=== PATIENT | male | born 1970 | race Caucasian/White ===

== ENCOUNTER 2025-09-05 15:19 | Emergency (ER) | payer OTHER ==
[2025-09-05] MEDS ORDERED: BABY ASPIRIN 81 MG CHEW ONE (15:34)
[2025-09-05] MEDS: BABY ASPIRIN 81 MG CHEW PO ONE (15:36)
[2025-09-05 15:37] VITALS: TEMP 97
[2025-09-05 15:46] LABS: BASOPHIL % 0.3 % (0.2-1.2); Basophil (Absolute #) 0.03 x10^3/uL (0.01-0.08); Eosinophil (Absolute #) 0.13 x10^3/uL (0.04-0.54); Hematocrit 44.9 % (40.1-51.0); Hemoglobin 15.4 g/dL (13.7-17.5); IMMATURE GRAN # 0.07 x10^3u/L (0.001-0.031); IMMATURE GRAN % 0.8 % (0.001-0.429); Lymphocyte (Absolute #) 1.16 x10^3/uL (1.32-3.57); Mean Corpuscular Hemoglobin 31.3 pg (25.7-32.2); Mean Corpuscular Hgb Concent. 34.3 g/dL (32.3-36.5); Monocyte (Absolute #) 0.68 x10^3/uL (0.30-0.82); NUCLEATED RBC # 0.00 x10^3u/L (0.00-0.012); NUCLEATED RBC % 0.0 % (0.00-0.2); Platelet Count 238 x10^3/uL (163-337); Red Blood Count 4.92 x10^6/uL (4.63-6.08); White Blood Count 9.1 x10^3/uL (4.23-9.07)
[2025-09-05] MEDS ORDERED: Zofran 4 MG/2 ML VIAL ONE (15:54)
[2025-09-05] MEDS: Zofran 4 MG/2 ML VIAL IV ONE (15:55)
[2025-09-05 16:00] LABS: CK-Creatinine Phosphokinase 202.0 U/L (55-170); Calcium 9.1 mg/dL (8.4-10.2); Carbon Dioxide 25.0 mmol/L (22-30); Creatinine 1 0.74 mg/dL (0.66-1.25); EST GLOMERULAR FILTRATION RATE 107.0 ML/MIN; Glucose 125.0 mg/dL (74-106); Potassium 4.0 mmol/L (3.5-5.1); SGOT/AST 25.0 U/L (17-59); SGPT/ALT 44.0 U/L (0-50); Total Protein 7.1 g/dL (6.3-8.2)
--- NOTE | 2025-09-05 16:04 | XRAY ---
Indication: Short of breath. Comparison: None Portable chest demonstrates normal heart and lungs. Bony thorax intact. No acute findings.
[2025-09-05 16:12] LABS: NT PRO BNPII < 20.0 pg/mL (<300); TROPONIN < 0.012 ng/mL (0.000-0.033)
--- NOTE | 2025-09-05 16:18 | XRAY ---
Indication: Weakness. Multiple contiguous axial images obtained through the head without contrast. Comparison: None Normal appearing brain parenchyma, ventricles, and bony calvarium. Visualized paranasal sinuses and mastoid air cells are clear. Impression: Normal CT head without contrast exam.
[2025-09-05 16:45] LABS: Glucose, Urine Negative (Negative); Protein,Urine Dip 100 (Negative); RBC 0-2 /HPF (0-5); WBC 0-2 /HPF (0-5)
--- NOTE | 2025-09-05 18:09 | ERPHSYRPT ---
<FIONA MOHR - Last Filed: 09/05/25 18:56> - History of Present Illness Time Seen by Provider: 09/05/25 15:20 Historian: patient Exam Limitations: no limitations Patient Subjective Stated Complaint: pain that goes from chest down right arm, patient states it is like a tingle, patient stated he began to feel weak this morning as well Triage Nursing Assessment: patient presents to ed via private vehicle, patient wheeled into ed in wheelchair, patient able to transfer from w/c to bed with assist of 1, patient alert and orinted x 4, skin p/w/d, patient lungs clear throughout all allen, patient has complaints of chest discomfort/sob, patients oxygen saturation upon arrival 94% on room air, abdomen soft/nontender, bowel sounds active x 4 quadrants Physician History: Patient comes to the emergency room due to chest pain located on the left side of the chest going towards the back. Is been going on since this entire morning rates it a 10 out of 10 in severity along with generalized weakness fatigue feeling nauseous. Patient denies any fever chills complains some slight shortness of breath also complains of dizziness. Patient denies any abdominal pain the chest pains considered by the patient as sharp in nature Timing/Duration: today Activities at Onset: none Quality: stabbing Location: shoulder Severity of Pain-Max: moderate Severity of Pain-Current: moderate Modifying Factors: Improves With: nothing Associated Symptoms: nausea, vomiting Prior Chest Pain/Cardiac Workup: no prior chest pain Nitro Today/Relief: no nitro taken today Aspirin Treatment Today: 81 mg x 4, provided by ED Allergies/Adverse Reactions: [id number] Reductase Inhibitor Allergy (Verified 09/05/25 15:33) Travel Risk - International Travel Have you traveled outside of the country in past 3 weeks: No - Emerging Infectious Disease Are you exhibiting symptoms associated with any current EIDs: No - Review of Systems Constitutional: No Fever, No Chills Eyes: No Symptoms Respiratory: No Cough, No Dyspnea Cardiac: Chest Pain Abdominal/Gastrointestinal: No Abdominal Pain, No Nausea, No Vomiting, No Diarrhea Skin: No Rash Neurological: No Dizziness, No Focal Weakness, No Sensory Changes Psychological: No Symptoms - Past Medical History Pertinent Past Medical History: Yes Cardiac History: High Cholesterol, Hypertension Other Medical History: vitamin d deficiency - Past Surgical History Past Surgical History: Yes Other Surgical History: 18 inches of colon removed. cyst removed from chest in 2013 - Social History Smoking Status: Never smoker Exposure to second hand smoke: No Drug Use: none - Social Determinants of Health Will the patient participate in the screening: Yes Do you worry about a steady place to live?: No Do you have any problems with any of the following?: No known problems In the past 12 months,have you had to go without utilities?: No Transportation Issues: No Has anyone in your support network made you feel unsafe?: No Have you or anyone in your house had to go w/o enough food: No - Physical Exam General Appearance: no apparent distress, alert Ears, Nose, Throat Exam: normal ENT inspection, moist mucous membranes Respiratory Exam: normal breath sounds, lungs clear, No respiratory distress Cardiovascular Exam: regular rate/rhythm, normal heart sounds Gastrointestinal/Abdomen Exam: soft, No tenderness, No mass Neurologic Exam: alert, oriented x 3, cooperative, normal mood/affect, sensation nml, No motor deficits Skin Exam: normal color, warm, dry SpO2 Interpretation: normal SpO2: 97 O2 Delivery: Room Air - Course EKG Interpreted by Me: RATE, Sinus Rhythm, NORMAL AXIS, NORMAL INTERVALS, NORMAL QRS Rhythm Strip: Rate - Radiology Exams Chest X-ray Interpretation: Teleradiologist Report - Progress Progress: improved Air Movement: good Progress Note: 09/05/25 18:09 Patient has a heart score of 2 will have troponin every 3 hours x 2 and a CTA done of the chest due to elevated D-dimer and chest pain radiating towards the back as per patient. Patient is feeling a lot more better stating that after the aspirin and antinausea meds he said that his pain and his symptoms improved significantly. - Departure Clinical Impression: Atypical chest pain Condition: Stable Referrals: [facility]OSP[facility] [Primary Care Provider, UNKNOWN] - Follow up with PCP 7 days Instructions: Atypical Chest Pain <MARYLIN CASTRO - Last Filed: 09/06/25 01:22> - History of Present Illness Aspirin Treatment Today: no aspirin today - Nursing Vital Signs Nursing Vital Signs: Initial Vital Signs Temperature 97 F 09/05/25 15:19 Pulse Rate 68 09/05/25 15:19 Respiratory Rate 16 09/05/25 15:19 Blood Pressure 150/69 09/05/25 15:19 O2 Sat by Pulse Oximetry 98 09/05/25 15:19 Pain Scale Pain Intensity 0 Ordered Tests: Active Orders 24 hr Category Date Time Status EKG-ER Only STAT Care 09/05/25 15:23 Completed CHEST 1 VIEW (PORTABLE) Stat Exams 09/05/25 15:24 Completed CHEST WITH CONTRAST [CT] Stat Exams 09/05/25 16:51 Taken HEAD WITHOUT CONTRAST [CT] Stat Exams 09/05/25 15:31 Completed CBC W DIFF Stat Lab 09/05/25 15:35 Completed CK-Creatinine Phosphokinase Stat Lab 09/05/25 15:35 Completed CMP Stat Lab 09/05/25 15:35 Completed D-DIMER QUANTITATIVE Stat Lab 09/05/25 15:35 Completed NT PRO BNPII Stat Lab 09/05/25 15:35 Completed TROPONIN Q3H Lab 09/05/25 15:35 Completed TROPONIN Q3H Lab 09/05/25 18:40 Completed UA W/RFX UR CULTURE Stat Lab 09/05/25 16:06 Completed Medication Summary Discontinued Medications Generic Name Dose Route Start Last Admin Trade Name Freq PRN Reason Stop Dose Admin Aspirin 324 mg 09/05/25 15:23 09/05/25 15:36 Aspirin 81 Mg Tab.Chew PO 09/05/25 15:24 324 mg STAT ONE Administration Aspirin Confirm 09/05/25 15:34 Aspirin 81 Mg Tab.Chew Administered 09/05/25 15:35 Dose 324 mg .ROUTE .STK-MED ONE Ondansetron HCl 4 mg 09/05/25 15:44 09/05/25 15:55 Ondansetron Hcl 4 Mg/2 Ml Vial IV 09/05/25 15:45 4 mg STAT ONE Administration Ondansetron HCl Confirm 09/05/25 15:54 Ondansetron Hcl 4 Mg/2 Ml Vial Administered 09/05/25 15:55 Dose 4 mg .ROUTE .STK-MED ONE Lab/Rad Data: Laboratory Result Diagrams 09/05/25 15:35 09/05/25 15:35 Laboratory Results 09/05/25 09/05/25 09/05/25 Range/Units 18:40 16:06 15:35 WBC (4.23-9.07) x10^3/uL RBC (4.63-6.08) x10^6/uL Hgb (13.7-17.5) g/dL Hct (40.1-51.0) % MCV (79.0-92.2) fL MCH (25.7-32.2) pg MCHC (32.3-36.5) g/dL RDW (11.6-14.4) % Plt Count (163-337) x10^3/uL MPV (9.4-12.4) fL Gran % (34.0-67.9) % Immature Gran % (Auto) (0.001-0.429) % Nucleat RBC Rel Count (0.00-0.2) % Eos # (Auto) (0.04-0.54) x10^3/uL Immature Gran # (Auto) (0.001-0.031) x10^3u/L Absolute Lymphs (auto) (1.32-3.57) x10^3/uL Absolute Monos (auto) (0.30-0.82) x10^3/uL Absolute Nucleated RBC (0.00-0.012) x10^3u/L Lymphocytes % (21.8-53.1) % Monocytes % (5.3-12.2) % Eosinophils % (0.8-7.0) % Basophils % (0.2-1.2) % Absolute Granulocytes (1.78-5.38) x10^3/uL Basophils # (0.01-0.08) x10^3/uL D-Dimer (0.0-0.50) mg/L Sodium (135-145) mmol/L Potassium (3.5-5.1) mmol/L Chloride (98-107) mmol/L Carbon Dioxide (22-30) mmol/L Anion Gap (5-15) MEQ/L BUN (9-20) mg/dL Creatinine (0.66-1.25) mg/dL Estimated GFR ML/MIN Glucose (74-106) mg/dL Calcium (8.4-10.2) mg/dL Total Bilirubin (0.2-1.3) mg/dL AST (17-59) U/L ALT (0-50) U/L Alkaline Phosphatase (38-126) U/L Creatine Kinase (55-170) U/L Troponin I < 0.012 < 0.012 (0.000-0.033) ng/mL NT-Pro-B Natriuret Pep < 20.0 (<300) pg/mL Serum Total Protein (6.3-8.2) g/dL Albumin (3.5-5.0) g/dL Urine Color Yellow (Yellow) Urine Appearance Clear (Clear) Urine pH 5.0 (4.6-8.0) Ur Specific [place] 1.020 (1.005-1.030) Urine Protein 100 A (Negative) Urine Glucose (UA) Negative (Negative) mg/dL Urine Ketones Negative (Negative) Urine Blood Negative (Negative) Urine Nitrite Negative (Negative) Urine Bilirubin Negative (Negative) Urine Urobilinogen 0.2 (0.2) mg/dL Ur Leukocyte Esterase Negative (Negative) U Hyaline Cast (Auto) NONE SEEN (0-2) /LPF Urine Microscopic RBC 0-2 (0-5) /HPF Urine Microscopic WBC 0-2 (0-5) /HPF Ur Epithelial Cells None Seen (None Seen) /HPF Urine Bacteria None Seen (None Seen) /HPF Urine Culture Reflexed NO (NO) 09/05/25 09/05/25 09/05/25 Range/Units 15:35 15:35 15:35 WBC 9.1 H (4.23-9.07) x10^3/uL RBC 4.92 (4.63-6.08) x10^6/uL Hgb 15.4 (13.7-17.5) g/dL Hct 44.9 (40.1-51.0) % MCV 91.3 (79.0-92.2) fL MCH 31.3 (25.7-32.2) pg MCHC 34.3 (32.3-36.5) g/dL RDW 13.4 (11.6-14.4) % Plt Count 238 (163-337) x10^3/uL MPV 8.5 L (9.4-12.4) fL Gran % 77.4 H (34.0-67.9) % Immature Gran % (Auto) 0.8 H (0.001-0.429) % Nucleat RBC Rel Count 0.0 (0.00-0.2) % Eos # (Auto) 0.13 (0.04-0.54) x10^3/uL Immature Gran # (Auto) 0.07 H (0.001-0.031) x10^3u/L Absolute Lymphs (auto) 1.16 L (1.32-3.57) x10^3/uL Absolute Monos (auto) 0.68 (0.30-0.82) x10^3/uL Absolute Nucleated RBC 0.00 (0.00-0.012) x10^3u/L Lymphocytes % 12.7 L (21.8-53.1) % Monocytes % 7.4 (5.3-12.2) % Eosinophils % 1.4 (0.8-7.0) % Basophils % 0.3 (0.2-1.2) % Absolute Granulocytes 7.06 H (1.78-5.38) x10^3/uL Basophils # 0.03 (0.01-0.08) x10^3/uL D-Dimer 0.58 H (0.0-0.50) mg/L Sodium 140 (135-145) mmol/L Potassium 4.0 (3.5-5.1) mmol/L Chloride 106 (98-107) mmol/L Carbon Dioxide 25 (22-30) mmol/L Anion Gap 12.2 (5-15) MEQ/L BUN 14 (9-20) mg/dL Creatinine 0.74 (0.66-1.25) mg/dL Estimated GFR 107.0 ML/MIN Glucose 125 H (74-106) mg/dL Calcium 9.1 (8.4-10.2) mg/dL Total Bilirubin 0.50 (0.2-1.3) mg/dL AST 25 (17-59) U/L ALT 44 (0-50) U/L Alkaline Phosphatase 84 (38-126) U/L Creatine Kinase 202 H (55-170) U/L Troponin I (0.000-0.033) ng/mL NT-Pro-B Natriuret Pep (<300) pg/mL Serum Total Protein 7.1 (6.3-8.2) g/dL Albumin 4.6 (3.5-5.0) g/dL Urine Color (Yellow) Urine Appearance (Clear) Urine pH (4.6-8.0) Ur Specific [place] (1.005-1.030) Urine Protein (Negative) Urine Glucose (UA) (Negative) mg/dL Urine Ketones (Negative) Urine Blood (Negative) Urine Nitrite (Negative) Urine Bilirubin (Negative) Urine Urobilinogen (0.2) mg/dL Ur Leukocyte Esterase (Negative) U Hyaline Cast (Auto) (0-2) /LPF Urine Microscopic RBC (0-5) /HPF Urine Microscopic WBC (0-5) /HPF Ur Epithelial Cells (None Seen) /HPF Urine Bacteria (None Seen) /HPF Urine Culture Reflexed (NO) - Departure Departure Disposition: Home Critical Care Time: No
[2025-09-05 19:16] VITALS: PULSE 74
[2025-09-05 20:27] VITALS: BP 84/64; RESP 29; O2SAT 95
--- NOTE | 2025-09-05 20:39 | ERPHSYRPT ---
- History of Present Illness Time Seen by Provider: 09/05/25 15:20 Patient Subjective Stated Complaint: pain that goes from chest down right arm, patient states it is like a tingle, patient stated he began to feel weak this morning as well Triage Nursing Assessment: patient presents to ed via private vehicle, patient wheeled into ed in wheelchair, patient able to transfer from w/c to bed with assist of 1, patient alert and orinted x 4, skin p/w/d, patient lungs clear throughout all allen, patient has complaints of chest discomfort/sob, patients oxygen saturation upon arrival 94% on room air, abdomen soft/nontender, bowel sounds active x 4 quadrants Aspirin Treatment Today: no aspirin today Allergies/Adverse Reactions: [id number]-[id number] Reductase Inhibitor Allergy (Verified 09/05/25 15:33) Home Medications: Acetaminophen 325 mg [Tylenol 325 mg] 975 mg PO HS 09/05/25 [History] Celecoxib [Celebrex] 100 mg PO BID 09/05/25 [History] Lisinopril 20 mg [Zestril 20 MG] 40 mg PO DAILY 09/05/25 [History] Travel Risk - International Travel Have you traveled outside of the country in past 3 weeks: No - Emerging Infectious Disease Are you exhibiting symptoms associated with any current EIDs: No - Past Medical History Pertinent Past Medical History: Yes Cardiac History: High Cholesterol, Hypertension Other Medical History: vitamin d deficiency - Past Surgical History Past Surgical History: Yes Other Surgical History: 18 inches of colon removed. cyst removed from chest in 2013 - Social History Smoking Status: Never smoker Exposure to second hand smoke: No Drug Use: none - Social Determinants of Health Will the patient participate in the screening: Yes Do you worry about a steady place to live?: No Do you have any problems with any of the following?: No known problems In the past 12 months,have you had to go without utilities?: No Transportation Issues: No Has anyone in your support network made you feel unsafe?: No Have you or anyone in your house had to go w/o enough food: No - Nursing Vital Signs Nursing Vital Signs: Initial Vital Signs Temperature 97 F 09/05/25 15:19 Pulse Rate 68 09/05/25 15:19 Respiratory Rate 16 09/05/25 15:19 Blood Pressure 150/69 09/05/25 15:19 O2 Sat by Pulse Oximetry 98 09/05/25 15:19 Pain Scale Pain Intensity 0 - Physical Exam SpO2: 95 Ordered Tests: Active Orders 24 hr Category Date Time Status EKG-ER Only STAT Care 09/05/25 15:23 Active CHEST 1 VIEW (PORTABLE) Stat Exams 09/05/25 15:24 Completed CHEST WITH CONTRAST [CT] Stat Exams 09/05/25 16:51 Taken HEAD WITHOUT CONTRAST [CT] Stat Exams 09/05/25 15:31 Completed CBC W DIFF Stat Lab 09/05/25 15:35 Completed CK-Creatinine Phosphokinase Stat Lab 09/05/25 15:35 Completed CMP Stat Lab 09/05/25 15:35 Completed D-DIMER QUANTITATIVE Stat Lab 09/05/25 15:35 Completed NT PRO BNPII Stat Lab 09/05/25 15:35 Completed TROPONIN Q3H Lab 09/05/25 15:35 Completed TROPONIN Q3H Lab 09/05/25 18:40 Completed UA W/RFX UR CULTURE Stat Lab 09/05/25 16:06 Completed Medication Summary Discontinued Medications Generic Name Dose Route Start Last Admin Trade Name Jeffersonq PRN Reason Stop Dose Admin Aspirin 324 mg 09/05/25 15:23 09/05/25 15:36 Aspirin 81 Mg Tab.Chew PO 09/05/25 15:24 324 mg STAT ONE Administration Aspirin Confirm 09/05/25 15:34 Aspirin 81 Mg Tab.Chew Administered 09/05/25 15:35 Dose 324 mg .ROUTE .STK-MED ONE Ondansetron HCl 4 mg 09/05/25 15:44 09/05/25 15:55 Ondansetron Hcl 4 Mg/2 Ml Vial IV 09/05/25 15:45 4 mg STAT ONE Administration Ondansetron HCl Confirm 09/05/25 15:54 Ondansetron Hcl 4 Mg/2 Ml Vial Administered 09/05/25 15:55 Dose 4 mg .ROUTE .STK-MED ONE Lab/Rad Data: Laboratory Result Diagrams 09/05/25 15:35 09/05/25 15:35 Laboratory Results 09/05/25 09/05/25 09/05/25 Range/Units 18:40 16:06 15:35 WBC (4.23-9.07) x10^3/uL RBC (4.63-6.08) x10^6/uL Hgb (13.7-17.5) g/dL Hct (40.1-51.0) % MCV (79.0-92.2) fL MCH (25.7-32.2) pg MCHC (32.3-36.5) g/dL RDW (11.6-14.4) % Plt Count (163-337) x10^3/uL MPV (9.4-12.4) fL Gran % (34.0-67.9) % Immature Gran % (Auto) (0.001-0.429) % Nucleat RBC Rel Count (0.00-0.2) % Eos # (Auto) (0.04-0.54) x10^3/uL Immature Gran # (Auto) (0.001-0.031) x10^3u/L Absolute Lymphs (auto) (1.32-3.57) x10^3/uL Absolute Monos (auto) (0.30-0.82) x10^3/uL Absolute Nucleated RBC (0.00-0.012) x10^3u/L Lymphocytes % (21.8-53.1) % Monocytes % (5.3-12.2) % Eosinophils % (0.8-7.0) % Basophils % (0.2-1.2) % Absolute Granulocytes (1.78-5.38) x10^3/uL Basophils # (0.01-0.08) x10^3/uL D-Dimer (0.0-0.50) mg/L Sodium (135-145) mmol/L Potassium (3.5-5.1) mmol/L Chloride (98-107) mmol/L Carbon Dioxide (22-30) mmol/L Anion Gap (5-15) MEQ/L BUN (9-20) mg/dL Creatinine (0.66-1.25) mg/dL Estimated GFR ML/MIN Glucose (74-106) mg/dL Calcium (8.4-10.2) mg/dL Total Bilirubin (0.2-1.3) mg/dL AST (17-59) U/L ALT (0-50) U/L Alkaline Phosphatase (38-126) U/L Creatine Kinase (55-170) U/L Troponin I < 0.012 < 0.012 (0.000-0.033) ng/mL NT-Pro-B Natriuret Pep < 20.0 (<300) pg/mL Serum Total Protein (6.3-8.2) g/dL Albumin (3.5-5.0) g/dL Urine Color Yellow (Yellow) Urine Appearance Clear (Clear) Urine pH 5.0 (4.6-8.0) Ur Specific [place] 1.020 (1.005-1.030) Urine Protein 100 A (Negative) Urine Glucose (UA) Negative (Negative) mg/dL Urine Ketones Negative (Negative) Urine Blood Negative (Negative) Urine Nitrite Negative (Negative) Urine Bilirubin Negative (Negative) Urine Urobilinogen 0.2 (0.2) mg/dL Ur Leukocyte Esterase Negative (Negative) U Hyaline Cast (Auto) NONE SEEN (0-2) /LPF Urine Microscopic RBC 0-2 (0-5) /HPF Urine Microscopic WBC 0-2 (0-5) /HPF Ur Epithelial Cells None Seen (None Seen) /HPF Urine Bacteria None Seen (None Seen) /HPF Urine Culture Reflexed NO (NO) 09/05/25 09/05/25 09/05/25 Range/Units 15:35 15:35 15:35 WBC 9.1 H (4.23-9.07) x10^3/uL RBC 4.92 (4.63-6.08) x10^6/uL Hgb 15.4 (13.7-17.5) g/dL Hct 44.9 (40.1-51.0) % MCV 91.3 (79.0-92.2) fL MCH 31.3 (25.7-32.2) pg MCHC 34.3 (32.3-36.5) g/dL RDW 13.4 (11.6-14.4) % Plt Count 238 (163-337) x10^3/uL MPV 8.5 L (9.4-12.4) fL Gran % 77.4 H (34.0-67.9) % Immature Gran % (Auto) 0.8 H (0.001-0.429) % Nucleat RBC Rel Count 0.0 (0.00-0.2) % Eos # (Auto) 0.13 (0.04-0.54) x10^3/uL Immature Gran # (Auto) 0.07 H (0.001-0.031) x10^3u/L Absolute Lymphs (auto) 1.16 L (1.32-3.57) x10^3/uL Absolute Monos (auto) 0.68 (0.30-0.82) x10^3/uL Absolute Nucleated RBC 0.00 (0.00-0.012) x10^3u/L Lymphocytes % 12.7 L (21.8-53.1) % Monocytes % 7.4 (5.3-12.2) % Eosinophils % 1.4 (0.8-7.0) % Basophils % 0.3 (0.2-1.2) % Absolute Granulocytes 7.06 H (1.78-5.38) x10^3/uL Basophils # 0.03 (0.01-0.08) x10^3/uL D-Dimer 0.58 H (0.0-0.50) mg/L Sodium 140 (135-145) mmol/L Potassium 4.0 (3.5-5.1) mmol/L Chloride 106 (98-107) mmol/L Carbon Dioxide 25 (22-30) mmol/L Anion Gap 12.2 (5-15) MEQ/L BUN 14 (9-20) mg/dL Creatinine 0.74 (0.66-1.25) mg/dL Estimated GFR 107.0 ML/MIN Glucose 125 H (74-106) mg/dL Calcium 9.1 (8.4-10.2) mg/dL Total Bilirubin 0.50 (0.2-1.3) mg/dL AST 25 (17-59) U/L ALT 44 (0-50) U/L Alkaline Phosphatase 84 (38-126) U/L Creatine Kinase 202 H (55-170) U/L Troponin I (0.000-0.033) ng/mL NT-Pro-B Natriuret Pep (<300) pg/mL Serum Total Protein 7.1 (6.3-8.2) g/dL Albumin 4.6 (3.5-5.0) g/dL Urine Color (Yellow) Urine Appearance (Clear) Urine pH (4.6-8.0) Ur Specific [place] (1.005-1.030) Urine Protein (Negative) Urine Glucose (UA) (Negative) mg/dL Urine Ketones (Negative) Urine Blood (Negative) Urine Nitrite (Negative) Urine Bilirubin (Negative) Urine Urobilinogen (0.2) mg/dL Ur Leukocyte Esterase (Negative) U Hyaline Cast (Auto) (0-2) /LPF Urine Microscopic RBC (0-5) /HPF Urine Microscopic WBC (0-5) /HPF Ur Epithelial Cells (None Seen) /HPF Urine Bacteria (None Seen) /HPF Urine Culture Reflexed (NO) - Progress Progress Note: 09/05/25 20:[address] Cotton, labs and CTA chest was reviewed, recommend follow-up to primary care doctor on an outpatient basis - Departure Departure Disposition: Home Clinical Impression: Atypical chest pain Condition: Stable Critical Care Time: No Referrals: [facility] [Primary Care Provider, UNKNOWN] - Follow up with PCP 7 days Instructions: Atypical Chest Pain
--- NOTE | 2025-09-06 08:52 | XRAY ---
Indication: Short of breath. Chest pain. Multiple contiguous axial images obtained through the chest using 80 cc Isovue 370 contrast and PE protocol. Comparison: None Good opacification pulmonary arteries to include lobar and segmental branches. No pulmonary embolus. Heart not enlarged. Aorta is minimally arteriosclerotic without aneurysm/dissection. No pathologic mediastinal/hilar lymphadenopathy. Lungs demonstrates minimal bilateral dependent atelectasis and tiny right base calcified granuloma. No suspicious pulmonary mass/nodule, infiltrate, effusion, or pneumothorax. Bony thorax intact. Limited upper abdomen demonstrates fatty liver. Impression: 1. Negative pulmonary embolus. No acute cardiopulmonary abnormalities. 2. Incidental fatty liver and old granulomatous disease.
== END 2025-09-05 20:48 | disposition home or self-care (01) ==
LOC: ED 15:19
DX: R07.89 Other chest pain (principal); R53.1 Weakness; R11.0 Nausea; I10 Essential (primary) hypertension; Z79.899 Other long term (current) drug therapy